=== PATIENT | male | born 1945 | race Caucasian/White ===

== ENCOUNTER 2023-02-05 11:28 | Emergency (ER) | payer OTHER ==
[2023-02-05] MEDS: Diphtheria,Pertussis(Acell),Tetanus Vaccine 0.5 ML Syringe IM ONE (12:29)
[2023-02-05] MEDS: Bacitracin/Neomycin/Polymyxin B Oint 0.9 GM U/D Packet TOP ONE (13:50)
== END 2023-02-05 14:25 | disposition home or self-care (01) ==
LOC: MERGE 11:28 → KA.ED 11:28
DX: S61.411A Laceration without foreign body of right hand, initial encounter (principal); S60.419A Abrasion of unspecified finger, initial encounter; R07.81 Pleurodynia; Z88.8 Allergy status to other drugs, medicaments and biological substances; Z79.82 Long term (current) use of aspirin; Z23 Encounter for immunization; W19.XXXA Unspecified fall, initial encounter; Y93.01 Activity, walking, marching and hiking; Y92.480 Sidewalk as the place of occurrence of the external cause
CPT/HCPCS: 71101-LT; 90471; 90715; 99283; 99283-25